=== PATIENT | male | born 1975 | race Caucasian/White ===

== ENCOUNTER 2019-05-12 21:03 | Emergency (ER) | payer MEDICAID ==
[~2019-05-12] VITALS: Ht 182.9 cm; Wt 86.2 kg
[2019-05-12 21:21] VITALS: BP 132/76
[2019-05-12] MEDS ORDERED: KETOROLAC TROMETHAMINE INJ 30 MG/ML VIAL ONE (21:50)
--- NOTE | 2019-05-12 21:59 | NUR ---
Patient discharged to home in stable condition. Written and verbal after care instructions given. Patient verbalizes understanding of instruction. Pt ambulatory with a steady gait
[2019-05-12] MEDS ORDERED: KETOROLAC TROMETHAMINE INJ 60 MG/2 ML VIAL IM ONE (22:00)
== END 2019-05-12 21:59 | disposition home or self-care (01) ==
LOC: ER 21:03
DX: S43.491A Other sprain of right shoulder joint, initial encounter (principal); X50.0XXA Overexertion from strenuous movement or load, initial encounter; Y93.89 Activity, other specified; Y92.89 Other specified places as the place of occurrence of the external cause; Y99.8 Other external cause status
CPT/HCPCS: 96372; 99283; J1885

== ENCOUNTER 2021-11-03 22:43 | Emergency (ER) | payer MEDICAID ==
[~2021-11-03] VITALS: Ht 182.9 cm; Wt 93.0 kg
[2021-11-03 23:10] VITALS: BP 140/80
--- NOTE | 2021-11-03 23:10 | NUR ---
BIBSELF C/O LEFT BICEP PAIN WORKING OUT, HEARD A POP WHILE CURLING. PT A/OX4. TOLERATING R/A WELL WITH NO SOB. AMBULATORY WITH STEADY GAIT.
--- NOTE | 2021-11-03 23:21 | NUR ---
DR. LIZZ FENG AT PT'S BEDSIDE
--- NOTE | 2021-11-03 23:26 | NUR ---
PT WALKED TO CT WITH [employer]
[2021-11-03] MEDS ORDERED: IBUPROFEN 400 MG TABLET PO ONE (23:30)
[2021-11-03] MEDS ORDERED: IBUPROFEN 400 MG TABLET ONE (23:48)
--- NOTE | 2021-11-03 23:50 | NUR ---
Patient does not wish to proceed with medical care recommended by Dr. Todd Patient given information related to possible complications, up to and including , which could occur as a result of leaving the hospital at this time. Patient verbalizes understanding of risks involved due to leaving against medical advice. Patient refused to d/c paper work. VSS
== END 2021-11-03 23:54 | disposition home or self-care (01) ==
LOC: ER 22:52
DX: S46.212A Strain of muscle, fascia and tendon of other parts of biceps, left arm, initial encounter (principal); Z60.2 Problems related to living alone; X58.XXXA Exposure to other specified factors, initial encounter; Y93.B9 Activity, other involving muscle strengthening exercises; Y92.89 Other specified places as the place of occurrence of the external cause; Y99.8 Other external cause status